=== PATIENT | female | born 1965 | race Caucasian/White ===

== ENCOUNTER 2016-09-07 08:13 | Emergency (ER) | payer MEDICARE, OTHER ==
[~2016-09-07 08:13] MED LIST: ASPIRIN CHEWABL81 MG PO; BACLOFEN20 MG PO; ELAVIL 25 MG TA25 MG PO; FEOSOL325 MG PO; KLONOPIN TAB 00.5 MG PO; MAGNESIUM OXID400 MG PO; MIRALAX PACK 171 PKT PO; NABUMETONE500 MG PO; NEURONTIN 300300 MG PO; PHENERGAN 25 MG25 M1 PO; PROVENTIL HFA6.7 GM INH; RELPAX40 MG PO; SYNTHROID25 MCG PO; ZOLOFT100 MG PO; ZYPREXA7.5 MG PO
== END 2016-09-07 10:35 | disposition home or self-care (01) ==
LOC: ER1 08:13
DX: G43.909 Migraine, unspecified, not intractable, without status migrainosus (principal); E03.9 Hypothyroidism, unspecified; F17.200 Nicotine dependence, unspecified, uncomplicated; Z88.8 Allergy status to other drugs, medicaments and biological substances; Z79.899 Other long term (current) drug therapy
CPT/HCPCS: 96365; 96375; 99283; J1885; J2550; J2765

== ENCOUNTER 2016-09-21 08:40 | Emergency (ER) | payer MEDICARE, OTHER ==
[2016-09-21 09:33] LABS: HEMOGLOBIN 14.4 gm/dl (12.3-15.3); RED BLOOD COUNT 4.22 M/UL (4.00-5.10); WHITE BLOOD COUNT 14.5 K/UL (4.5-11.0)
[2016-09-21 10:06] LABS: BUN/CREATININE RATIO 11 (0-10)
== END 2016-09-21 12:58 | disposition home or self-care (01) ==
LOC: ER1 08:40
PROVIDERS: Preventive Medicine Occupational Medicine
DX: E86.0 Dehydration (principal); R25.9 Unspecified abnormal involuntary movements; F17.200 Nicotine dependence, unspecified, uncomplicated
CPT/HCPCS: 36415; 70450; 71010; 80053; 80307; 81001; 82550; 82553; 83874; 84484; 85025; 93005; 96361; 96374; 99284; G0480; J2405

== ENCOUNTER 2020-06-20 14:31 | Inpatient (IN) | payer MEDICARE, OTHER ==
[~2020-06-20] VITALS: Ht 162.6 cm; Wt 51.3 kg
[~2020-06-20 14:31] MED LIST changes: -NEURONTIN 300300 MG PO; +NEURONTIN800 MG PO; +ZYPREXA15 MG PO; -ZYPREXA7.5 MG PO
[2020-06-20 15:07] LABS: HEMOGLOBIN 14.7 gm/dl (12.3-15.3); RED BLOOD COUNT 4.65 M/UL (4.00-5.10); WHITE BLOOD COUNT 12.2 K/UL (4.5-11.0)
[2020-06-20 16:02] LABS: BUN/CREATININE RATIO 14 (0-10)
[2020-06-20] MEDS ORDERED: HYDROCODON-ACE1 EAC6 PO (17:57)
[2020-06-20] MEDS ORDERED: ALPRAZOLAM0.5 MG PO (17:58)
[2020-06-20] MEDS ORDERED: ZANAFLEX4 M1 PO (18:00)
[2020-06-20] MEDS ORDERED: MIRTAZAPINE45 MG PO (18:01)
[2020-06-20] MEDS ORDERED: OMEPRAZOLE20 MG PO (18:02)
[2020-06-21 04:22] LABS: HEMOGLOBIN 13.4 gm/dl (12.3-15.3); RED BLOOD COUNT 4.39 M/UL (4.00-5.10); WHITE BLOOD COUNT 11.5 K/UL (4.5-11.0)
[2020-06-21 04:58] LABS: BUN/CREATININE RATIO 16 (0-10)
[2020-06-22 06:56] LABS: HEMOGLOBIN 14.1 gm/dl (12.3-15.3); RED BLOOD COUNT 4.51 M/UL (4.00-5.10)
[2020-06-22 06:57] LABS: WHITE BLOOD COUNT 14.6 K/UL (4.5-11.0)
[2020-06-22 07:57] LABS: BUN/CREATININE RATIO 18 (0-10)
[2020-06-23 03:26] LABS: HEMOGLOBIN 13.9 gm/dl (12.3-15.3); RED BLOOD COUNT 4.49 M/UL (4.00-5.10)
[2020-06-23 03:30] LABS: WHITE BLOOD COUNT 10.3 K/UL (4.5-11.0)
[2020-06-23 04:12] LABS: BUN/CREATININE RATIO 23 (0-10)
[2020-06-24 08:06] LABS: BUN/CREATININE RATIO 22 (0-10)
--- NOTE | 2020-06-24 19:28 | NUR ---
1415 Patient's son here, requested that his mother have pain meds. Also wanted to know why she wasn't getting pain meds she got at home. Explained that patient had come in with altered mental status & doctor had probably not ordered them due to that reason. Dr Sanchez called to request pain med for patient. 1515 Patient's daughter here, requested patient be transferred to [facility] where her cancer doctor was. Dr Sanchez called, stated she would come talk to the daughter.
== END 2020-06-24 19:20 | disposition short-term general hospital (02) | DRG 557 ==
LOC: ER1 14:31 → CDU 16:49 → MED SURG 4 21:04
PROVIDERS: Family Medicine; Physician Assistant Medical; ADMIT Internal Medicine
DX: M62.82 Rhabdomyolysis (principal); G92 Toxic encephalopathy; G93.41 Metabolic encephalopathy; N13.30 Unspecified hydronephrosis; K82.0 Obstruction of gallbladder; Z20.822 Contact with and (suspected) exposure to COVID-19; R94.31 Abnormal electrocardiogram [ECG] [EKG]; E87.6 Hypokalemia; R53.81 Other malaise; E03.9 Hypothyroidism, unspecified; Z88.8 Allergy status to other drugs, medicaments and biological substances; Z79.890 Hormone replacement therapy; Z85.89 Personal history of malignant neoplasm of other organs and systems; Z79.891 Long term (current) use of opiate analgesic; Z79.899 Other long term (current) drug therapy; Z83.3 Family history of diabetes mellitus
CPT/HCPCS: 36415; 70450; 71045; 76705; 80048; 80053; 80307; 81001; 82140; 82550; 82553; 83605; 83735; 83874; 84132; 84439; 84443; 84484; 85025; 85027; 85610; 87040; 90471; 93005; 94760; 96374; 96375; 97110; 97162; 97166; 97530; 97530-GP-CQ; 99285; G0480; J0360; J1650; J3480; J7030; U0002

== ENCOUNTER 2021-01-09 16:31 | Emergency (ER) | payer MEDICARE, OTHER ==
[~2021-01-09 16:31] MED LIST changes: +ALPRAZOLAM0.5 MG PO; +HYDROCODON-ACE1 EAC6 PO; +MIRTAZAPINE45 MG PO; +OMEPRAZOLE20 MG PO; +ZANAFLEX4 M1 PO
[2021-01-09 17:39] LABS: HEMOGLOBIN 12.8 gm/dl (12.3-15.3); RED BLOOD COUNT 4.31 M/UL (4.00-5.10); WHITE BLOOD COUNT 12.1 K/UL (4.5-11.0)
[2021-01-09 18:03] LABS: BUN/CREATININE RATIO 14 (0-10)
== END 2021-01-09 21:57 | disposition home or self-care (01) ==
LOC: ER1 16:31
PROVIDERS: Family Medicine
DX: J95.09 Other tracheostomy complication (principal); C06.9 Malignant neoplasm of mouth, unspecified
CPT/HCPCS: 71045; 80053; 82550; 82553; 83605; 83874; 84484; 85025; 93005; 99284; J2250

== ENCOUNTER 2021-01-13 15:39 | Inpatient (IN) | payer MEDICARE, OTHER ==
[~2021-01-13] VITALS: Ht 157.5 cm; Wt 57.6 kg
[2021-01-13 16:38] LABS: HEMOGLOBIN 12.2 gm/dl (12.3-15.3); RED BLOOD COUNT 4.07 M/UL (4.00-5.10); WHITE BLOOD COUNT 9.8 K/UL (4.5-11.0)
[2021-01-13 16:45] LABS: BUN/CREATININE RATIO 10 (0-10)
[2021-01-13 23:03] LABS: HEMOGLOBIN 11.3 gm/dl (12.3-15.3); RED BLOOD COUNT 3.77 M/UL (4.00-5.10)
[2021-01-13 23:04] LABS: WHITE BLOOD COUNT 6.1 K/UL (4.5-11.0)
[2021-01-13 23:26] LABS: BUN/CREATININE RATIO 12 (0-10)
[2021-01-13] MEDS ORDERED: CELEXA10 MG PO (23:29)
[2021-01-13] MEDS ORDERED: SENNA8.6 MG PO (23:30)
[2021-01-13] MEDS ORDERED: TYLENOL EXTRA500 MG PO (23:30)
[2021-01-14 00:20] LABS: HEMOGLOBIN 11.7 gm/dl (12.3-15.3); RED BLOOD COUNT 3.87 M/UL (4.00-5.10)
[2021-01-14 00:21] LABS: WHITE BLOOD COUNT 14.7 K/UL (4.5-11.0)
[2021-01-14 00:30] LABS: BUN/CREATININE RATIO 14 (0-10)
[2021-01-14 05:02] LABS: HEMOGLOBIN 10.6 gm/dl (12.3-15.3); RED BLOOD COUNT 3.61 M/UL (4.00-5.10); WHITE BLOOD COUNT 11.5 K/UL (4.5-11.0)
[2021-01-14 09:30] LABS: BUN/CREATININE RATIO 13 (0-10)
--- NOTE | 2021-01-15 15:11 | NUR ---
1200 spoke with patient... 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 pt states she isnt having an suicidal thoughts at this time. Patient feels mental stable and wants to go home. patients children agrees to take patient home with them. family agrees to lock patients meds in lock box. follow up appts made and called to family memebers.
== END 2021-01-15 17:53 | disposition home or self-care (01) | DRG 917 ==
LOC: ER1 15:39 → CCU 18:11 → CDU 18:11 → CCU 01-14 02:43
PROVIDERS: Internal Medicine; Student in an Organized Health Care Education/Training Program; ADMIT Internal Medicine
PROC: 0BH17EZ Insertion of Endotracheal Airway into Trachea, Via Natural or Artificial Opening (ICD-10-PCS; principal; 2021-01-13)
PROC: 5A1945Z Respiratory Ventilation, 24-96 Consecutive Hours (ICD-10-PCS; 2021-01-13)
PROC: 02HV33Z Insertion of Infusion Device into Superior Vena Cava, Percutaneous Approach (ICD-10-PCS; 2021-01-13)
PROC: B548ZZA Ultrasonography of Superior Vena Cava, Guidance (ICD-10-PCS; 2021-01-13)
DX: T42.4X1A Poisoning by benzodiazepines, accidental (unintentional), initial encounter (principal); G92 Toxic encephalopathy; Z20.822 Contact with and (suspected) exposure to COVID-19; J96.01 Acute respiratory failure with hypoxia; I69.354 Hemiplegia and hemiparesis following cerebral infarction affecting left non-dominant side; M62.82 Rhabdomyolysis; R53.81 Other malaise; T40.601A Poisoning by unspecified narcotics, accidental (unintentional), initial encounter; R94.31 Abnormal electrocardiogram [ECG] [EKG]; I10 Essential (primary) hypertension; C14.0 Malignant neoplasm of pharynx, unspecified; I95.9 Hypotension, unspecified; K21.9 Gastro-esophageal reflux disease without esophagitis; Z88.8 Allergy status to other drugs, medicaments and biological substances
CPT/HCPCS: 36415; 36556; 36600; 51702; 71045; 80053; 80307; 82550; 82553; 82803; 83735; 84484; 85025; 85027; 90686; 93005; 94002; 94003; 99285; G0480; J0171; J1650; J2543; J3480; J7030; U0002

== ENCOUNTER 2021-09-13 17:49 | Inpatient (IN) | payer MEDICARE, OTHER ==
[~2021-09-13] VITALS: Ht 162.6 cm; Wt 43.1 kg
[~2021-09-13 17:49] MED LIST changes: +CELEXA10 MG PO; +MIRTAZAPINE15 MG PO; -MIRTAZAPINE45 MG PO; +NEURONTIN600 MG PO; -NEURONTIN800 MG PO; +SENNA8.6 MG PO; +SYNTHROID125 MCG PO; -SYNTHROID25 MCG PO; +TYLENOL EXTRA500 MG PO
[2021-09-13 18:47] LABS: HEMOGLOBIN 14.3 gm/dl (12.3-15.3); RED BLOOD COUNT 4.67 M/UL (4.00-5.10); WHITE BLOOD COUNT 12.6 K/UL (4.5-11.0)
[2021-09-13 19:29] LABS: BUN/CREATININE RATIO 14 (0-10)
[2021-09-14] MEDS ORDERED: AJOVY225 MG/1.5 SQ (10:17)
[2021-09-14] MEDS ORDERED: RELPAX40 MG PO (17:11)
[2021-09-15 03:18] LABS: BUN/CREATININE RATIO 20 (0-10)
[2021-09-15 03:43] LABS: HEMOGLOBIN 11.1 gm/dl (12.3-15.3); RED BLOOD COUNT 3.65 M/UL (4.00-5.10); WHITE BLOOD COUNT 5.3 K/UL (4.5-11.0)
[2021-09-16 03:53] LABS: BUN/CREATININE RATIO 17 (0-10)
[2021-09-16 06:13] LABS: HEMOGLOBIN 11.2 gm/dl (12.3-15.3); RED BLOOD COUNT 3.71 M/UL (4.00-5.10)
[2021-09-17 04:14] LABS: HEMOGLOBIN 12.3 gm/dl (12.3-15.3); RED BLOOD COUNT 4.07 M/UL (4.00-5.10); WHITE BLOOD COUNT 5.8 K/UL (4.5-11.0)
[2021-09-17 04:32] LABS: BUN/CREATININE RATIO 14 (0-10)
[2021-09-18 03:33] LABS: HEMOGLOBIN 11.8 gm/dl (12.3-15.3); RED BLOOD COUNT 3.83 M/UL (4.00-5.10); WHITE BLOOD COUNT 5.9 K/UL (4.5-11.0)
[2021-09-18 04:11] LABS: BUN/CREATININE RATIO 20 (0-10)
[2021-09-18] MEDS ORDERED: ASPIRIN EC81 MG PO (11:23)
[2021-09-18] MEDS ORDERED: ALPRAZOLAM0.5 MG PO (11:23)
[2021-09-18] MEDS ORDERED: CEFUROXIME250 MG PO (11:23)
[2021-09-18] MEDS ORDERED: HYDROCODON-ACE1 EAC6 PO (11:23)
[2021-09-18] MEDS ORDERED: AMLODIPINE BESYL5 MG PO (11:23)
[2021-09-18] MEDS ORDERED: NEURONTIN600 MG PO (11:23)
[2021-09-18] MEDS ORDERED: ATORVASTATIN CA20 MG PO (11:23)
[2021-09-18] MEDS ORDERED: MELATONIN3 MG PO (11:26)
[2021-09-18] MEDS ORDERED: LEVOTHYROXINE100 MC2 PO (12:53)
--- NOTE | 2021-09-18 16:26 | NUR ---
report called to [facility].
== END 2021-09-18 18:34 | disposition short-term general hospital (02) | DRG 69 ==
LOC: ER1 17:49 → CDU 09-14 00:23 → MED SURG 4 09-14 00:23 → CDU 09-14 00:23 → MED SURG 4 09-14 09:32
PROVIDERS: Internal Medicine; Physician Assistant; ADMIT Internal Medicine
PROC: B24BZZZ Ultrasonography of Heart with Aorta (ICD-10-PCS; principal; 2021-09-15)
DX: G45.9 Transient cerebral ischemic attack, unspecified (principal); M62.82 Rhabdomyolysis; N30.00 Acute cystitis without hematuria; Z20.822 Contact with and (suspected) exposure to COVID-19; R53.1 Weakness; I08.1 Rheumatic disorders of both mitral and tricuspid valves; E03.9 Hypothyroidism, unspecified; F41.9 Anxiety disorder, unspecified; F32.A Depression, unspecified; E87.6 Hypokalemia; G47.00 Insomnia, unspecified; R53.81 Other malaise; R29.700 NIHSS score 0; I45.81 Long QT syndrome; Z85.12 Personal history of malignant neoplasm of trachea; Z87.891 Personal history of nicotine dependence; Z82.49 Family history of ischemic heart disease and other diseases of the circulatory system; Z88.8 Allergy status to other drugs, medicaments and biological substances; Z88.6 Allergy status to analgesic agent; Z93.0 Tracheostomy status; Z86.73 Personal history of transient ischemic attack (TIA), and cerebral infarction without residual deficits
CPT/HCPCS: ECHO; 36415; 70450; 70496; 70498; 70551; 71045; 80048; 80053; 80061; 81001; 82550; 82553; 83036; 83735; 84132; 84439; 84443; 84484; 85025; 85027; 87077; 87086; 87186; 92610; 93005; 93306; 96361; 96365; 96372; 96374; 96375; 96376; 97110-GP-CQ; 97116; 97116-GP-CQ; 97162; 97166; 97530; 99285; G0378; J0696; J1650; J2543; J3475; J7030; Q9967; U0002